=== PATIENT | female | born 1955 | race Two or more races ===

== ENCOUNTER 2023-11-12 14:37 | Emergency (ER) | payer OTHER ==
[~2023-11-12] VITALS: Ht 170.2 cm; Wt 73.5 kg
[~2023-11-12 14:37] MED LIST: LEVO750T8 PO; METR-344 PO; ZOFR4T PO
[2023-11-12 15:48] VITALS: BP 123/72; PULSE 88; RESP 17; TEMP 99; O2SAT 96
== END 2023-11-12 16:31 | disposition home or self-care (01) ==
LOC: ER 14:37
DX: S16.1XXA Strain of muscle, fascia and tendon at neck level, initial encounter (principal); J44.9 Chronic obstructive pulmonary disease, unspecified; E78.5 Hyperlipidemia, unspecified; Z88.8 Allergy status to other drugs, medicaments and biological substances; Z79.899 Other long term (current) drug therapy; V49.49XA Driver injured in collision with other motor vehicles in traffic accident, initial encounter; Y93.I9 Activity, other involving external motion; Y92.89 Other specified places as the place of occurrence of the external cause; Y99.8 Other external cause status
CPT/HCPCS: 72040

== ENCOUNTER 2023-11-17 15:37 | Emergency (ER) | payer OTHER ==
[~2023-11-17] VITALS: Ht 167.6 cm; Wt 74.7 kg
[2023-11-17] MEDS: ONDANSETRON HCL 4 MG/2 ML VIAL IV ONE (16:40)
[2023-11-17] MEDS: MORPHINE SULFATE 4 MG/ML SYR/VIAL IV ONE (16:40)
[2023-11-17 16:44] VITALS: RESP 18; O2SAT 96
[2023-11-17] MEDS: KETOROLAC TROMETH 30 MG/ML 1ML VIAL IV ONE (16:52)
[2023-11-17 17:31] LABS: Basophils # (auto) 0.1 10 ^3/uL (0-0.2); Basophils % (auto) 0.6 % (0.0-2.0); Eosinophils # (auto) 0 10 ^3/uL (0-0.8); Eosinophils % (auto) 0.3 % (0.0-7.0); Hematocrit 44.2 % (36.0-46.0); Hemoglobin 14.6 g/dL (12.2-16.2); Lymphocytes # (auto) 1.8 10 ^3/uL (0.4-5.4); Lymphocytes % (auto) 15.6 % (10.0-50.0); Mean Corpuscular Hemoglobin 30.3 pg (28.0-32.0); Mean Corpuscular Hgb Conc. 33.2 g/dL (32.0-36.0); Mean Corpuscular Volume 91.4 fL (80.0-100.0); Monocytes # (auto) 0.5 10 ^3/uL (0-1.3); Monocytes % (auto) 4.4 % (0.0-12.0); Neutrophils % (auto) 79.1 % (37.0-80.0); Nucleated Red Blood Cells % 0.1 %; Red Blood Cells 4.83 10^6/uL (4.0-5.20); Red Cell Distribution Width 15.2 % (11.8-14.3); White Blood Cell 11.4 10^3/uL (4.4-10.8)
[2023-11-17 17:34] LABS: Alanine Aminotransferase 25 U/L (7-40); Albumin 4.7 g/dL (3.2-4.8); Alkaline Phosphatase 87 U/L (46-116); Anion Gap 9 (5-15); Aspartate Aminotransferase 22 U/L (13-40); BUN/Creatinine Ratio 13.1 (10.0-20.0); Blood Urea Nitrogen 14 mg/dL (9-23); Calcium 10.2 mg/dL (8.7-10.4); Carbon Dioxide 23 mmol/L (20-30); Chloride 109 mmol/L (98-107); Glucose 144 mg/dL (74-106); Sodium 141 mmol/L (136-145)
[2023-11-17 17:35] LABS: Bilirubin, Total 0.6 mg/dL (0.2-1.0); Total Protein 7.3 g/dL (5.7-8.2)
[2023-11-17 19:00] LABS: Urine Bacteria None Seen /hpf (None Seen)
[2023-11-17 19:15] LABS: Urine Blood 3+ /uL (Negative); Urine Clarity Turbid (Clear); Urine Color Yellow (Yellow); Urine Hyaline Cast FEW /lpf (0 - 2); Urine Mucus FEW (None Seen); Urine Protein, UAD TRACE (Negative); Urine Specific Gravity 1.026 (1.001-1.035); Urine Urobilinogen Normal (Negative); Urine WBC 4 /hpf (0 - 5)
[2023-11-17 20:13] VITALS: PULSE 68; RESP 16; O2SAT 95
[2023-11-17] MEDS: PIPERACILLIN-TAZO 4.5GM 100 ML IV ONE (20:43)
[2023-11-17] MEDS: SODIUM CHLORIDE 0.9% 1,000 ML IV ONE (20:59)
[2023-11-17] MEDS ORDERED: METR-344 PO (22:17)
[2023-11-17] MEDS ORDERED: LEVO500T91 PO (22:17)
[2023-11-17] MEDS: levoFLOXacin 500 MG TAB PO ONE (22:25)
[2023-11-17] MEDS: metroNIDAZOLE 500 MG TAB PO ONE (22:25)
[2023-11-17 22:50] VITALS: BP 107/62; PULSE 63; RESP 16; TEMP 98.6; O2SAT 100
== END 2023-11-17 22:53 | disposition home or self-care (01) ==
LOC: ER 15:37
DX: K57.92 Diverticulitis of intestine, part unspecified, without perforation or abscess without bleeding (principal); N13.30 Unspecified hydronephrosis; J44.9 Chronic obstructive pulmonary disease, unspecified; E78.5 Hyperlipidemia, unspecified; Z88.5 Allergy status to narcotic agent; Z88.6 Allergy status to analgesic agent
CPT/HCPCS: 36415; 74176; 80053; 81001; 85025; 87086; 96365; 96375; 99285; J1885; J2270; J2405; J2543; J7030